=== PATIENT | male | born 1955 | race Caucasian/White ===

== ENCOUNTER 2022-11-22 08:30 | Outpatient (CLI) | payer MEDICARE, SELFPAY ==
[2022-11-22 09:44] LABS: Cholesterol 134 mg/dL (0-200); HDL Direct 48 mg/dL; Triglycerides 140 mg/dL (<150)
[2022-11-22 09:55] LABS: LDL Cholesterol Direct 66 mg/dL
== END 2022-11-22 08:31 | disposition home or self-care (01) ==
LOC: ANHLAB 08:39
PROVIDERS: PCP Family Medicine Sports Medicine; Visit Provider Internal Medicine Cardiovascular Disease
DX: I71.21 Aneurysm of the ascending aorta, without rupture (principal)
CPT/HCPCS: 36415; 80061

== ENCOUNTER 2023-12-12 18:33 | Emergency (ER) | payer MEDICARE, SELFPAY ==
--- NOTE | ~2023-12-12 | XR_ITS ---
EXAMINATION: XR chest 1V portable DATE: 12/12/2023 19:56 INDICATION: Left rib fracture. TECHNIQUE: A single frontal view of the chest was obtained. COMPARISON: None. FINDINGS: There is mild atelectasis bilaterally. Calcified pulmonary nodules and calcified right glendy r lymph nodes are consistent with old granulomatous disease. No pleural effusion or pneumothorax. The heart size is normal. There are fractures of left fourth, fifth, sixth, and seventh ribs. IMPRESSION: 1. Fractures of left fourth-seventh ribs. Reviewed, dictated and finalized at location A.
--- NOTE | ~2023-12-12 | CT_ITS ---
Clinical Indication: Pulmonary embolus CT Scan of the Chest with Contrast: Technique: Contiguous sections were acquired throughout the chest after intravenous administration of 200 cc of Omnipaque 350. Dose reduction technique was used on this scan by utilizing automated expos ure control and iterative reconstruction technique. The dose-length product (DLP) was 1568.94 mGy-cm. Findings: There is no evidence of any significant mediastinal, hilar or axillary lymphadenopathy. There is no f illing defect in the pulmonary arterial tree to suggest pulmonary embolus. There is no evidence of ao rtic dissection or aneurysm. No pericardial effusion. Small left pleural effusion present, with mild left basilar atelectatic change. There is mild right b asilar atelectatic change. Images through the upper abdomen reveal no abnormalities. Acute fractures of the lateral left fourth, fifth, sixth, seventh, and eighth ribs noted. Impression: No evidence of pulmonary embolus, aortic dissection, or aortic aneurysm. Small left pleural effusion and mild bibasilar atelectatic change. Acute fractures of the lateral left 4th-8th ribs. Reviewed, dictated and finalized at [facility]. Impression: No evidence of pulmonary embolus, aortic dissection, or aortic aneurysm. Small left pleural effusion and mild bibasilar atelectatic change. Acute fractures of the lateral left 4th-8th ribs.
[2023-12-12 18:40] VITALS: BP 146/78; PULSE 128; RESP 18; TEMP 36.1; O2SAT 95
--- NOTE | 2023-12-12 19:00 | ECG_ITS ---
Test Date: 2023-12-12 19:32:19 Measurements Intervals Anthon Rate: 119 P: 6 AR: 189 QRS: 194 QRSD: 97 T: 6 QT: 309 QTc: 436 Interpretive Statements SINUS TACHYCARDIA INCOMPLETE RIGHT BUNDLE BRANCH BLOCK [90+ ms QRS DURATION, TERMINAL R IN V1/V2, 40+ ms S IN I/aVL/V4/V5/V6] RIGHT VENTRICULAR HYPERTROPHY [SOME/ALL OF: PROMINENT R IN V1, LATE TRANSITION, RAD, PEDRO PABLO, SSS] INFERIOR MYOCARDIAL INFARCTION , PROBABLY OLD [40+ ms Q WAVE AND/OR ST/T ABNORMALITY IN II/aVF] No previous ECG available for comparison Electronically Signed On 12-13-2023 09:39:22 CDT by Lisa Dubon M.D.
--- NOTE | 2023-12-12 19:02 | ED.SOB ---
HPI - SOB/Dyspnea General Chief Complaint: Fall <Yaagilmar Carson, M[employer]INER HELPER - Last Filed: 12/12/23 19:06> Stated Complaint: PAIN AFTER FALL 12/06/23 EVALED AT [facility] <Yaagilmar Carson APRN - Last Filed: 12/12/23 19:06> Time Seen by Provider: 12/12/23 18:50 <Yaa Carson APRN - Last Filed: 12/12/23 19:06> Focused HPI: Patient is a 68-year-old male who presents to the ER with shortness of breath and chest pain. He reports he fell last week and went to [facility] where they did a CT scan in the ER. Patient reports he was sent home and advised to follow-up with his PCP. His left upper back pain has worsened and radiates to his chest. He has a history of COPD, hypertension and diabetes. Patient reports he wears oxygen at night, but has had increased shortness of breath since his fall. He denies any signs symptoms of infection/illness, one-sided tingling/ weakness /numbness, or headache. GENERAL: Well-appearing, well-nourished, and in no acute distress. HEAD: Normocephalic, atraumatic. CHEST: Clear to auscultation. ?Mild respiratory distress but no wheezing noted. Tachypnea. HEART: Tachycardia, regular rhythm. ABDOMEN: + BS, no abdominal tenderness with palpation, no hepatomegaly. NEURO: ?Alert and oriented x3. Patient screened in triage and initial orders placed.? ?Additional care and disposition to be based upon?diagnostic testing and treatment. <Yaagilmar Carson APRN - Last Filed: 12/12/23 19:06> Focused HPI: Patient is a 68-year-old male who presents to the ER with shortness of breath and chest pain. He reports he fell last week and went to [facility] where they did a CT scan in the ER. Patient reports he was sent home and advised to follow-up with his PCP. His left upper back pain has worsened and radiates to his chest. He has a history of COPD, hypertension and diabetes. Patient reports he wears oxygen at night, but has had increased shortness of breath since his fall. He denies any signs symptoms of infection/illness, one-sided tingling/ weakness /numbness, or headache. GENERAL: Well-appearing, well-nourished, and in no acute distress. HEAD: Normocephalic, atraumatic. CHEST: Clear to auscultation. ?Mild respiratory distress but no wheezing noted. Tachypnea. HEART: Tachycardia, regular rhythm. ABDOMEN: + BS, no abdominal tenderness with palpation, no hepatomegaly. NEURO: ?Alert and oriented x3. Patient screened in triage and initial orders placed.? ?Additional care and disposition to be based upon?diagnostic testing and treatment. Patient states that when he is not moving he has no pain but the moment he starts to move he has pain that is localized to his left ribcage. <Ana Laura Elizabeth MD - Last Filed: 12/13/23 01:33> Related Data Home Medications: Home Medications Medication Instructions Recorded Confirmed atorvastatin 80 mg tablet mg 12/12/23 bupropion HCl 150 mg 24 hr tablet, mg PO 12/12/23 extended release ezetimibe 10 mg tablet mg 12/12/23 finasteride 5 mg tablet mg 12/12/23 fluoxetine 40 mg capsule mg 12/12/23 lisinopril 20 mg tablet mg 12/12/23 metformin 500 mg tablet mg 12/12/23 metoprolol succinate 25 mg mg PO 12/12/23 tablet,extended release 24 hr oxycodone-acetaminophen 7.5 mg-325 tablet 12/12/23 mg tablet pantoprazole 40 mg tablet,delayed mg PO 12/12/23 release umeclidinium 62.5 mcg/actuation inhalation 12/12/23 blister powder for inhalation (Incruse Ellipta) <Yaa Carson, MILLINER HELPER - Last Filed: 12/12/23 19:06> Allergies/Adverse Reactions: Allergies Allergy/AdvReac Type Severity Reaction Status Date / Time codeine Allergy Itching Verified 12/12/23 19:55 Penicillins AdvReac Other Verified 12/12/23 19:55 <Yaa Carson APRN - Last Filed: 12/12/23 19:06> Review of Systems Review of Systems: All systems are reviewed and are negative unless stated otherwise i
[2023-12-12 19:28] VITALS: BP 133/96; PULSE 112; RESP 14; O2SAT 96
[2023-12-12 19:36] LABS: Basophils Percent Auto 0.2 % (0.2-1.2); Eosinophils Percent Auto 0.3 % (0-4.4); Hematocrit 45.2 % (42.0-52.0); Immature Granulocyte Absolute 0.04 K/mm3 (0.00-0.031); Immature Granulocyte Percent A 0.3 % (0-0.5); Lymphocytes Absolute Auto 1.86 K/mm3 (0.9-3.2); Mean Corpuscular HGB Conc 33.2 g/dl (32-36); Mean Corpuscular Hemoglobin 31.6 pg (26-34); Mean Corpuscular Volume 95.4 fl (80-100); Mean Platelet Volume 10.1 fl (7.4-10.4); Monocytes Absolute Auto 1.1 K/mm3 (0.1-0.6); Neutrophils Absolute Auto 8.6 K/mm3 (1.3-6.7); Neutrophils Percent Auto 74.2 % (45.5-73.1); Platelet Count Result 267 k/mm3 (150-375); Red Blood Count 4.74 M/mm3 (4.6-6.20); Red Cell Distribution Width 13.7 % (11.5-14.5); White Blood Count 11.6 K/mm3 (4.5-10.0)
[2023-12-12 19:52] LABS: Alanine Aminotransferase 36 U/L (6-50); Albumin Level 4.7 g/dL (3.5-5.1); Alkaline Phosphatase 82 U/L (38-126); Anion Gap 9 mmol/L (4-12); Aspartate Amino Transferase 34 U/L (17-59); Bilirubin,Total 0.9 mg/dL (0.2-1.3); Blood Urea Nitrogen 14 mg/dL (9-20); Calcium 10.3 mg/dL (8.4-10.2); Carbon Dioxide 24 mmol/L (22-30); Chloride 103 mmol/L (98-107); Estimated CRCL calculation 114 ml/min; Estimated Glomerular Filt Rate > 60; Glucose 147 mg/dL (65-110); Lactic Acid Reflex 1.3 mmol/L (0.7-2.0); Magnesium 1.9 mg/dL (1.6-2.3); Sodium 136 mmol/L (137-145)
[2023-12-12] MEDS: SODIUM CHLORIDE 0.9% IV 1,000 ML 999 ML IV CONT (19:58)
[2023-12-12] MEDS: HYDROmorphone HCL INJ (*CRX) 1 MG/ML SYR 0.5 MG IV PUSH ×2 (19:59→20:44)
[2023-12-12] MEDS: LIDOCAINE 5% PATCH 1 PATCH TRANSDERM (20:44)
[2023-12-12 21:51] VITALS: BP 139/89; PULSE 100; RESP 14; O2SAT 92
[2023-12-12] MEDS: HYDROmorphone HCL INJ (*CRX) 1 MG/ML SYR IV PUSH (22:46)
[2023-12-12] MEDS: KETOROLAC 15 MG/ML VIAL (*BKC) IV PUSH (23:19)
== END 2023-12-13 01:23 | disposition home or self-care (01) ==
PROVIDERS: Registered Nurse; Emergency Provider Emergency Medicine; PCP Physical Medicine & Rehabilitation Pain Medicine
DX: S22.42XA Multiple fractures of ribs, left side, initial encounter for closed fracture (principal); W19.XXXA Unspecified fall, initial encounter; J44.9 Chronic obstructive pulmonary disease, unspecified; I10 Essential (primary) hypertension; E11.9 Type 2 diabetes mellitus without complications; Z79.84 Long term (current) use of oral hypoglycemic drugs
CPT/HCPCS: 36415; 71045; 71275; 80053; 83605; 83735; 85025; 93005; 96361; 96374; 96375; 96376; 99284; A9270; J1171; J1885; J7030; Q9967